=== PATIENT | male | born 1995 | race Caucasian/White ===

== ENCOUNTER 2019-04-20 14:31 | Emergency (ER) | payer OTHER ==
[~2019-04-20] VITALS: Ht 172.7 cm; Wt 65.0 kg
--- NOTE | 2019-04-20 14:54 | NUR ---
THIS IS A PATIENT COMING IN FROM [facility], ESCORTED BY TWO METAL FORGER'S ASSISTANT OFFICERS FOR HEALING INJURY TO RIGHT EYE WITH THREE HEALING LACERATIONS THAT WERE PREVIOUSLY SUTURED UP. MD ROBIN IN ROOM TO EVALUATE HEALING AND WOUNDS. PATIENT DENIES ANY VISION PROBLEMS, DENIES TAVERA. PATIENT HAS LACERATIONS THAT WERE SUTURED PREVIOUSLY TO RIGHT UPPER EYELID, LOWER EYE, AND TOP LIP. MD ROBIN PROVIDED VERBAL ORDERS TO VISUAL ACUITY AND INTRAOCULAR PRESSURE TESTS TO BE DONE. VSS, NAD, METAL FORGER'S ASSISTANT OFFICERS IN ROOM AT THIS TIME
--- NOTE | 2019-04-20 15:10 | NUR ---
VA TESTS DONE
--- NOTE | 2019-04-20 15:34 | NUR ---
Reno leslie in [facility] - 04/20/19 at 1535 by GREGORY MD FUAD TO ROOM TO TEST INTRAOCULAR PRESSURE
[2019-04-20] MEDS ORDERED: PROPARACAINE OPHTH 0.5%, 15ML ONE (15:43)
--- NOTE | 2019-04-20 15:45 | NUR ---
[facility] leslie in [facility] - 04/20/19 at 1549 by DORIS PA TO ROOM TO PERFORM IOP EXAM
--- NOTE | 2019-04-20 15:49 | NUR ---
PA TO ROOM TO PERFORM IOP EXAM
[2019-04-20 16:00] VITALS: BP 120/69
[2019-04-20] MEDS ORDERED: PROPARACAINE OPHTH 0.5%, 15ML EACHEYE STA (16:07)
== END 2019-04-20 16:03 | disposition home or self-care (01) ==
LOC: ED 15:40
DX: S02.31XA Fracture of orbital floor, right side, initial encounter for closed fracture (principal); X58.XXXA Exposure to other specified factors, initial encounter; Y93.89 Activity, other specified; Y92.148 Other place in prison as the place of occurrence of the external cause; Y99.8 Other external cause status
CPT/HCPCS: 99283